=== PATIENT | male | born 1955 | race Caucasian/White ===

== ENCOUNTER 2022-04-17 18:06 | Inpatient (IN) | payer MEDICARE, SELFPAY ==
[2022-04-17] VITALS (9 sets, daily range): BP systolic 137–181; BP diastolic 95–132; PULSE 51–130; RESP 14–23; TEMP 36.7; O2SAT 92–97; BMI 27.2; BMI 27.1
--- NOTE | 2022-04-17 18:03 | ECG_ITS ---
APPROVED REPORT Exam: Resting ECG HR:134 bpm ECG Measurements Heart Rate 134 AXES QRSd 96 QRS 37 QT 279 T 95 QTc 358 Conclusion ATRIAL FIBRILLATION WITH RAPID VENTRICULAR RESPONSE WITH ABERRANT CONDUCTION OR VENTRICULAR PREMATURE COMPLEXES NONSPECIFIC ST & T-WAVE ABNORMALITY ABNORMAL RHYTHM ECG UNCONFIRMED REPORT Electronically signed by : Rufino Aldridge MD 04/18/2022 17:24:14
--- NOTE | 2022-04-17 18:27 | XR_ITS ---
PROCEDURE INFORMATION: Exam: XR Chest Exam date and time: 04/17/2022 6:37 PM Age: 66 years old Clinical indication: Shortness of breath; Additional info: [place] TECHNIQUE: Imaging protocol: XR of the chest. Views: 1 view. COMPARISON: No relevant prior studies available. FINDINGS: Lungs: Unremarkable. No consolidation. Pleural spaces: Unremarkable. No pleural effusion. No pneumothorax. Heart/Mediastinum: Unremarkable. No cardiomegaly. Bones/joints: Unremarkable. IMPRESSION: No acute findings.
[2022-04-17 18:39] LABS: Chloride 109 mmol/L (98-107); Potassium 4.1 mmoL/L (3.5-5.1); Sodium 138 mmol/L (136-145)
[2022-04-17 18:42] LABS: Anion Gap 16.1 mEq/L (5-15); Basophils # 0.2 K/mm3 (0-0.2); Blood Urea Nitrogen 18 mg/dl (9-20); Calcium 9.5 mg/dl (8.4-10.2); Carbon Dioxide 17 mmol/L (22.0-30.0); Creatinine Clearance Estimated 57 mL/min (50-200); Eosinophils # 0.2 K/mm3 (0.0-0.4); Eosinophils % 1.9 % (0.1-12.0); Estimated Glomerular Filt Rate 47 ml/min (>60); GFR (African American) 56 ML/MIN (>60); Glucose 144 mg/dl (74-100); Hematocrit 46.4 % (42.0-52.0); Hemoglobin 15.5 g/dL (14.1-18.0); Lymphocytes # 1.8 K/mm3 (0.7-4.5); Lymphocytes % 16.9 % (10-50); Mean Corpuscular HGB Conc 33.4 g/dL (31.8-35.4); Mean Corpuscular Hemoglobin 30.5 pg (27.0-31.2); Mean Corpuscular Volume 91.1 fl (80-94); Monocytes # 0.5 K/mm3 (0.1-1.0); Monocytes % 4.7 % (1.7-9.3); Neutrophils # 7.8 K/mm3 (1.8-7.8); Neutrophils % 74.5 % (37.0-80.0); Platelet Count 285 K/mm3 (142-424); Red Blood Count 5.09 M/mm3 (4.60-6.20); Red Cell Distribution Width 14.3 % (11.5-17.5); White Blood Count 10.4 K/mm3 (4.8-10.8)
[2022-04-17 18:54] LABS: Troponin I 0.08 ng/ml (0.00-0.034)
--- NOTE | 2022-04-17 20:13 | HMH.EDARPALP ---
ED Disposition Clinical Impression: Angina pectoris, unstable, Atrial fibrillation with rapid ventricular response, Hypothyroidism (acquired), Renal insufficiency CHF (congestive heart failure) Qualifiers: Heart failure type: unspecified Heart failure chronicity: acute Qualified Code(s): I50.9 - Heart failure, unspecified Disposition: Admitted As Inpatient Condition on Discharge: Serious - Critical Care Critical Care Time: No Attestation: On 04/17/22, the high probability of a clinically significant, sudden or life threatening deterioration of the following system(s) required my full and direct attention, intervention and personal management. The time I documented below is in addition to time spent performing reported procedures but includes the following listed in this critical care notation. Medical Decision Making - Medical Records Medical records reviewed: Yes: I reviewed the patient's medical records. - [place] Inquiry Pt receiving controlled substance: No Vital Signs: 04/17/22 18:08 04/17/22 18:53 04/17/22 19:31 Temperature 98.0 F Temperature Source Oral Pulse Rate 120 H 73 Pulse Rate [Right Radial] 130 H Respiratory Rate 18 16 23 Blood Pressure 162/115 H 149/100 H Blood Pressure [Right Arm] 181/132 H Blood Pressure Mean Blood Pressure Mean [Right Arm] 148 Blood Pressure Source [Right Arm] Automatic Cuff Blood Pressure Position [Right Arm] Sitting 02 Sat by Pulse Oximetry 96 96 95 Oxygen Delivery Method Room Air Room Air Room Air 04/17/22 20:00 04/17/22 20:39 04/17/22 21:00 Temperature Temperature Source Pulse Rate 55 L 51 L 66 Pulse Rate [Right Radial] Respiratory Rate 18 16 14 Blood Pressure 137/101 H 143/107 H 145/95 H Blood Pressure [Right Arm] Blood Pressure Mean Blood Pressure Mean [Right Arm] Blood Pressure Source [Right Arm] Blood Pressure Position [Right Arm] 02 Sat by Pulse Oximetry 96 92 L 94 L Oxygen Delivery Method Room Air Room Air Room Air 04/17/22 21:15 04/17/22 21:23 04/17/22 21:30 Temperature Temperature Source Pulse Rate 77 77 61 Pulse Rate [Right Radial] Respiratory Rate 19 15 16 Blood Pressure 159/132 H 151/99 H 145/95 H Blood Pressure [Right Arm] Blood Pressure Mean 141 119 111 Blood Pressure Mean [Right Arm] Blood Pressure Source [Right Arm] Blood Pressure Position [Right Arm] 02 Sat by Pulse Oximetry 95 97 95 Oxygen Delivery Method Room Air Room Air - Lab Data Lab results reviewed: Yes: I reviewed the patient's lab results. Lab Results 04/17/22 18:17: WBC 10.4, RBC 5.09, Hgb 15.5, Hct 46.4, MCV 91.1, MCH 30.5, MCHC 33.4, RDW 14.3, Plt Count 285, MPV 10.0, Neut % (Auto) 74.5, Lymph % (Auto) 16.9, [place] % (Auto) 4.7, Eos % (Auto) 1.9, Baso % (Auto) 2.0, Neut # (Auto) 7.8, Lymph # (Auto) 1.8, [place] # (Auto) 0.5, Eos # (Auto) 0.2, Baso # (Auto) 0.2 04/17/22 18:17: Sodium 138, Potassium 4.1, Chloride 109 H, Carbon Dioxide 17 L, Anion Gap 16.1 H, BUN 18, Creatinine 1.50 H, Estimated Creat Clear 57, Estimated GFR 47 L, Est GFR ( Amer) 56 L, Glucose 144 H, Calcium 9.5, Troponin I 0.08 H 04/17/22 18:17: NT-Pro-B Natriuret Pep 3750 H, TSH 18.20 H, Thyroxine (T4) 5.8 04/17/22 20:54: SARS-CoV-2 (PCR) Not detected, Influenza A Untype (PCR) Not detected, Influenza Type B (PCR) Not detected 04/17/22 21:21: Troponin I 0.09 H Result diagrams: 04/17/22 18:17 04/17/22 18:17 Orders (Tests/Meds): ED MEDICATIONS Generic Name Dose Route Start Last Admin Trade Name Freq PRN Reason Stop Dose Admin Diltiazem HCl 100 mg/ Sodium 100 mls @ 5 mls/hr 04/17/22 20:45 04/17/22 20:36 Chloride IV 05/17/22 20:44 5 mls/hr .Q20H JOYCE Administration Protocol Sodium Chloride 10 ml 04/17/22 18:28 Sodium Chloride 0.9% 10ml Flush Syringe IV 05/17/22 18:27 NEEDED PRN Maintain IV Site Discontinued Medications Generic Name Dose Route Start Last Admin Trade Name Freq PRN Reason Sto
--- NOTE | 2022-04-17 20:44 | PC.NURSE ---
Spoke with housekeeping worker at [facility] about pt records. She advised she was attempting to fax them now.
[2022-04-17 20:57] LABS: NT Pro Brain Natriuretic Pep. 3750 pg/mL (0-125)
[2022-04-17 21:01] LABS: Coronavirus 19, PCR Not Detected (NotDetected); Influenza A, PCR Not Detected (NotDetected); Influenza B, PCR Not Detected (NotDetected)
[2022-04-17 21:04] LABS: T4 (Thyroxine) 5.8 ug/dl (5.53-11.0)
--- NOTE | 2022-04-17 21:23 | PC.NURSE ---
Pt updated on POC. No complaints at this time.
[2022-04-17 22:00] LABS: Troponin I 0.09 ng/ml (0.00-0.034)
--- NOTE | 2022-04-17 22:46 | PC.NURSE ---
450 ml urinary output at this time.
--- NOTE | 2022-04-17 22:48 | ECG_ITS ---
APPROVED REPORT Exam: Resting ECG HR:76 bpm ECG Measurements Heart Rate 76 AXES QRSd 100 QRS 29 QT 372 T 91 QTc 403 Conclusion ATRIAL FIBRILLATION Late R wave progression ABNORMAL RHYTHM ECG UNCONFIRMED REPORT Electronically signed by : Rufino Aldridge MD 04/18/2022 17:23:07
[2022-04-18] VITALS (28 sets, daily range): BP systolic 123–178; BP diastolic 70–120; PULSE 58–120; RESP 12–33; TEMP 36.5–37.1; O2SAT 92–98; BMI 28.6
--- NOTE | 2022-04-18 | IR_ITS ---
APPROVED REPORT Patient Location: Inpatient Assistant Teacher Primary: JESICA Valle RT (R) PROCEDURES Left heart catheterization Left ventriculogram Selective coronary angiogram INDICATION Unstable angina Informed consent was obtained prior to the procedure. COMPLICATIONS None Estimated Blood Loss: Less than 10 mls TECHNIQUE One percent lidocaine used to anesthetize the right anterior aspect of the wrist. The right radial artery was accessed via the Seldinger technique. A 6 [place] sheath was placed in the right radial artery. 2.5 mg of verapamil, 800 mcg of nitroglycerin, 1mg Lidocaine and 5000 U Heparin were given through the arterial sheath. The papa catheter was also used to perform left heart catheterization, left ventriculogram and selective coronary angiogram. At the end of the procedure the sheath was removed good hemostasis was achieved using Traclet band, patient was transferred to the postop holding area in stable condition. ANGIOGRAPHIC RESULTS The left main artery Normal The left anterior descending artery Has proximal concentric 80% stenosis with mid vessel greater than 90% stenosis. KAPIL II flow was present down the LAD The circumflex artery There is a large dominant vessel has proximal 30% stenoses. The terminal obtuse marginal artery has proximal and mid vessel tandem 70% stenoses The right coronary artery Vestigial with severe proximal disease greater than 90% The TUCKER ventriculogram reveals Moderate to severely dilated with ejection fraction of 25 to 30% The left ventricular end-diastolic pressure 20 mmHg IMPRESSION Critical three-vessel coronary artery disease Severely reduced ejection fraction Mildly elevated LVEDP PLAN 1. Patient be referred to [facility] for urgent coronary artery bypass surgery 2. Standard therapy for systolic heart failure Electronically signed by : Clifton Gibson MD 04/18/2022 12:00:19
--- NOTE | 2022-04-18 00:37 | PC.NURSE ---
PT ARRIVED TO FLOOR VIA STRETCHER FROM ED W/STAFF @ 0073
[2022-04-18 01:01] LABS: Troponin I 0.09 ng/ml (0.00-0.034)
--- NOTE | 2022-04-18 02:59 | PC.NURSE ---
pt's HR in 50-60's, notified MD Moy, instructed to stop cardizem drip for HR less than 60
--- NOTE | 2022-04-18 05:43 | PC.NURSE ---
pt admitted earlier this morning to 216, pt NPO for heart cath today at 1100, pt's VSS but had to stop cardizem drip due to bradycardia although pt still in afib, pt voiding in urinal, pt rested well overnight, will continue to monitor
[2022-04-18 07:23] LABS: Basophils # 0.1 K/mm3 (0-0.2); Basophils % 1.5 % (0.1-2.0); Eosinophils # 0.3 K/mm3 (0.0-0.4); Eosinophils % 4.1 % (0.1-12.0); Hematocrit 43.6 % (42.0-52.0); Hemoglobin 14.3 g/dL (14.1-18.0); Lymphocytes # 1.8 K/mm3 (0.7-4.5); Lymphocytes % 21.5 % (10-50); Mean Corpuscular HGB Conc 32.7 g/dL (31.8-35.4); Mean Corpuscular Hemoglobin 30.2 pg (27.0-31.2); Mean Corpuscular Volume 92.4 fl (80-94); Mean Platelet Volume 10.2 fl (7.4-10.4); Monocytes # 0.5 K/mm3 (0.1-1.0); Monocytes % 5.6 % (1.7-9.3); Neutrophils # 5.7 K/mm3 (1.8-7.8); Neutrophils % 67.4 % (37.0-80.0); Platelet Count 229 K/mm3 (142-424); Red Blood Count 4.72 M/mm3 (4.60-6.20); Red Cell Distribution Width 14.5 % (11.5-17.5); White Blood Count 8.4 K/mm3 (4.8-10.8)
[2022-04-18 07:30] LABS: Chloride 108 mmol/L (98-107); Potassium 3.3 mmoL/L (3.5-5.1); Sodium 139 mmol/L (136-145)
[2022-04-18 07:32] LABS: Blood Urea Nitrogen 21 mg/dl (9-20); Creatinine Clearance Estimated 66 mL/min (50-200); Estimated Glomerular Filt Rate 55 ml/min (>60); GFR (African American) 66 ML/MIN (>60)
[2022-04-18 07:33] LABS: Anion Gap 13.3 mEq/L (5-15); Calcium 8.9 mg/dl (8.4-10.2); Carbon Dioxide 21 mmol/L (22.0-30.0); Chol/HDL Ratio 6.6 (1-3.5); Cholesterol 165 mg/dl (140-200); Glucose 113 mg/dl (74-100); HDL Cholesterol 25 mg/dl (40-60); Triglycerides 100 mg/dl (30-150); VLDL Cholesterol 20 mg/dL (0-40)
[2022-04-18 07:44] LABS: Direct LDL Cholesterol 121.33 mg/dL (100-129)
--- NOTE | 2022-04-18 09:24 | HMH.HP ---
*Admission Date: 04/17/22 *Chief complaint: sob *History of present illness: this patient presented to ed with sob which has been progressive over the last week - some element of ant chest discomfort - [facility] and noted to have a fib and was admitted overnight -pt was released and again had above sx and presented to [facility] ed with progressive sob over the last 2 weeks with chest pain which feels like pt winded and was [facility] and admitted overnight and d/c today - pt with a fib and d/c today - hx of cad - last mi 8 yrs ago - pt was admitted for card eval and treatment for a fib/chf and unstable angina [facility] History I have reviewed the patient's past medical history: Yes Medical History: Reports:: Coronary Artery Disease, Myocardial Infarction Denies:: Internal Pacemaker *Have you ever received a pneumonia vaccine?: No *Have you received a flu vaccine this season?: Yes Other Surgeries: Yes: Cardiac Catheterization, Coronary Stent. No: Pacemaker - *Social History Smoking Status: Former smoker Alcohol Intake: current Alcohol Intake Frequency:: holidays/special occasions only *Occupational Status:: retired *Travel in the last 8 weeks: None Family Hx:: Coronary Artery Disease Review of Systems - Review of Systems Review of systems:: pertinent systems reviewed and negative unless documented below - Constitutional Denies fever(s) - Eyes Denies change in vision - ENT Denies sore throat - *Cardiovascular Reports chest pain at rest, Reports shortness of breath, Reports rapid, pounding, or irregular heartbeat, Reports fast heart rate - *Respiratory Denies cough - *Gastrointestinal Denies abdominal pain - *Genitourinary Denies blood in urine - *Musculoskeletal Denies joint pain - Integumentary/Breasts Denies rash - *Neurologic Denies headache(s), Denies seizure-like activity - Psychiatric Denies anxiety Meds Home Medications Medication Instructions Recorded Confirmed Type Apixaban [Eliquis 5mg Tablet] 5 mg PO BID 04/17/22 04/17/22 History Aspirin [Aspirin 81mg chewable 81 mg PO DAILY 04/17/22 04/17/22 History tab] Metoprolol Succinate [Metoprolol 25 mg PO DAILY 04/17/22 04/17/22 History Succinate 25mg Tablet*] dilTIAZem HCL [Diltiazem 24Hr ER] 120 mg PO DAILY 04/17/22 04/17/22 History Allergies Allergy/AdvReac Type Severity Reaction Status Date / Time No Known Allergies Allergy Verified 04/17/22 18:27 Exam Vital signs and Labs for Last 24 Hours: Temp Pulse Resp BP Pulse Ox 98.7 F 70 19 153/83 H 96 04/18/22 08:00 04/18/22 08:00 04/18/22 06:00 04/18/22 06:00 04/18/22 06:00 Laboratory Results - last 24 hr 04/17/22 18:17: WBC 10.4, RBC 5.09, Hgb 15.5, Hct 46.4, MCV 91.1, MCH 30.5, MCHC 33.4, RDW 14.3, Plt Count 285, MPV 10.0, Neut % (Auto) 74.5, Lymph % (Auto) 16.9, [place] % (Auto) 4.7, Eos % (Auto) 1.9, Baso % (Auto) 2.0, Neut # (Auto) 7.8, Lymph # (Auto) 1.8, [place] # (Auto) 0.5, Eos # (Auto) 0.2, Baso # (Auto) 0.2 04/17/22 18:17: Sodium 138, Potassium 4.1, Chloride 109 H, Carbon Dioxide 17 L, Anion Gap 16.1 H, BUN 18, Creatinine 1.50 H, Estimated Creat Clear 57, Estimated GFR 47 L, Est GFR ( Amer) 56 L, Glucose 144 H, Calcium 9.5, Troponin I 0.08 H 04/17/22 18:17: NT-Pro-B Natriuret Pep 3750 H, TSH 18.20 H, Thyroxine (T4) 5.8 04/17/22 20:54: SARS-CoV-2 (PCR) Not detected, Influenza A Untype (PCR) Not detected, Influenza Type B (PCR) Not detected 04/17/22 21:21: Troponin I 0.09 H 04/18/22 00:18: Troponin I 0.09 H 04/18/22 06:58: WBC 8.4, RBC 4.72, Hgb 14.3, Hct 43.6, MCV 92.4, MCH 30.2, MCHC 32.7, RDW 14.5, Plt Count 229, MPV 10.2, Neut % (Auto) 67.4, Lymph % (Auto) 21.5, [place] % (Auto) 5.6, Eos % (Auto) 4.1, Baso % (Auto) 1.5, Neut # (Auto) 5.7, Lymph # (Auto) 1.8, [place] # (Auto) 0.5, Eos # (Auto) 0.3, Baso # (Auto) 0.1 04/18/22 06:58: Sodium 139, Potassium 3.3 L, Chloride 108 H, Carbon Dioxide 21 L, Anion Gap 13.3, BUN 21 H, Creatinine 1.30 H, Est
--- NOTE | 2022-04-18 13:25 | HMH.PHAINT ---
MEDICATION RECONCILIATION COMPLETE VIA CALL TO [facility] IN [place].
--- NOTE | 2022-04-18 13:26 | P.CONPHA_ITS ---
[facility] VTE Monitoring - Patient Demographics Admission date: 04/18/22 Report Date: 04/18/22 Time: 13:26 Allergies/Adverse Reactions: Patient Allergies No Known Allergies Allergy (Verified 04/17/22 18:27) Height: 1.73 m Weight: 85.417 kg Patient Problems: Current Active Problems Angina pectoris, unstable (Acute) Atrial fibrillation with rapid ventricular response (Acute) CHF (congestive heart failure) (Acute) Hypothyroidism (acquired) (Acute) Renal insufficiency (Acute) - VTE Risk Labs: VTE Related Lab Results Hgb 14.3 g/dL (14.1-18.0) 04/18/22 06:58 Hct 43.6 % (42.0-52.0) 04/18/22 06:58 Plt Count 229 K/mm3 (142-424) 04/18/22 06:58 BUN 21 mg/dl (9-20) H 04/18/22 06:58 Creatinine 1.30 mg/dl (0.66-1.25) H 04/18/22 06:58 Estimated Creat Clear 66 mL/min (50-200) 04/18/22 06:58 Was VTE Risk Assessment Performed: No Clinical Trial Participant: No - Prophylaxis VTE Prophylaxis Ordered?: Yes Types of VTE Prophylaxis: TEDS Knee High Location of Applied Device: Bilateral Lower Extremeties
--- NOTE | 2022-04-18 16:55 | PC.NURSE ---
received call from [facility] @ who reports that pt is on their list and that they're working on getting him a bed for a CABG procedure.
--- NOTE | 2022-04-18 18:49 | PC.NURSE ---
bed assignment: [address], 8th floor, room 128. Report will be called after shift change (per [facility] request) to [phone]. Dr. Moy and Dr. Gibson are aware. Pt to transport via ambulance.
--- NOTE | 2022-04-18 19:30 | HMH.DCSUM ---
General - General Admission date:: 04/18/22 Discharge date: 04/18/22 HPI HPI: this patient presented to ed with sob which has been progressive over the last week - some element of ant chest discomfort - pt went to [facility] ed and noted to have a fib and was admitted overnight -pt was released and again had above sx and presented to [facility] ed with progressive sob over the last 2 weeks with chest pain which feels like pt winded and was seen at [facility] and admitted overnight and d/c today - pt with a fib and d/c today - hx of cad - last mi 8 yrs ago - pt was admitted for card eval and treatment for a fib/chf and unstable angina Hospital Course Hospital Course: pt was admitted to [facility] on tele on cardizam drip with good response with dec hr and has sig diuresis with lasix and had stable labs - pt was taken to [facility] processing lab[facility] One percent lidocaine used to anesthetize the right anterior aspect of the wrist. The right radial artery was accessed via the Seldinger technique. A 6 [place] sheath was placed in the right radial artery. 2.5 mg of verapamil, 800 mcg of nitroglycerin, 1mg Lidocaine and 5000 U Heparin were given through the arterial sheath. The papa catheter was also used to perform left heart catheterization, left ventriculogram and selective coronary angiogram. At the end of the procedure the sheath was removed good hemostasis was achieved using Traclet band, patient was transferred to the postop holding area in stable condition. ANGIOGRAPHIC RESULTS The left main artery Normal The left anterior descending artery Has proximal concentric 80% stenosis with mid vessel greater than 90% stenosis. KAPIL II flow was present down the LAD The circumflex artery There is a large dominant vessel has proximal 30% stenoses. The terminal obtuse marginal artery has proximal and mid vessel tandem 70% stenoses The right coronary artery Vestigial with severe proximal disease greater than 90% The TUCKER ventriculogram reveals Moderate to severely dilated with ejection fraction of 25 to 30% The left ventricular end-diastolic pressure 20 mmHg IMPRESSION Critical three-vessel coronary artery disease Severely reduced ejection fraction Mildly elevated LVEDP PLAN 1. Patient be referred to [facility] for urgent coronary artery bypass surgery 2. Standard therapy for systolic heart failure pt remained stable and transferred to for cabg surg - Objective Vital signs: Temp Pulse Resp BP Pulse Ox 98.1 F 107 H 16 156/78 H 95 04/18/22 18:20 04/18/22 18:20 04/18/22 18:20 04/18/22 18:20 04/18/22 18:20 no acute distress - *Routine HEENT Exam Head: Present: normocephalic Eye: Present: EOMI, PERRL ENT: Present: mucous membranes moist - *Routine Neck Exam Absent: JVD - *Routine Respiratory Exam Present: CTA bilaterally - *Routine Cardiovascular Exam Present: RRR, murmur - *Routine Abdominal Exam Present: soft - *Routine Extremities Exam Absent: calf tenderness - *Routine Skin Exam Present: intact - *Routine Neurological Exam Present: alert, CN II-XII intact - Routine Psychiatric Exam Present: normal affect Results Labs on day of discharge: Labs from last 24 hours 04/18/22 04/18/22 04/18/22 06:58 06:58 00:18 WBC 8.4 RBC 4.72 Hgb 14.3 Hct 43.6 MCV 92.4 MCH 30.2 MCHC 32.7 RDW 14.5 Plt Count 229 MPV 10.2 Neut % (Auto) 67.4 Lymph % (Auto) 21.5 [place] % (Auto) 5.6 Eos % (Auto) 4.1 Baso % (Auto) 1.5 Neut # (Auto) 5.7 Lymph # (Auto) 1.8 [place] # (Auto) 0.5 Eos # (Auto) 0.3 Baso # (Auto) 0.1 Sodium 139 Potassium 3.3 L Chloride 108 H Carbon Dioxide 21 L Anion Gap 13.3 BUN 21 H Creatinine 1.30 H Estimated Creat Clear 66 Estimated GFR 55 L Est GFR ( Amer) 66 Glucose 113 H D Calcium 8.9 Magnesium 2.0 Troponin I 0.09 H NT-Pro-B Natriuret Pep
--- NOTE | 2022-04-18 20:49 | PC.NURSE ---
called report to Millie [phone] at [facility], pt to be transported via ambulance for CABG
--- NOTE | 2022-04-18 21:28 | PC.NURSE ---
pt being transported via ems personnel to [facility], all paperwork secured and given to appropriate personnel
--- NOTE | 2022-04-18 21:28 | PC.NURSE ---
PT WAS TRANSFERRED VIA STRETCHER PER [id number]
== END 2022-04-18 21:28 | disposition short-term general hospital (02) | DRG 286 ==
LOC: ER 22:49 → 2ND 23:52
PROVIDERS: Emergency Medicine; Internal Medicine; Admitting Provider Emergency Medicine; Emergency Provider Emergency Medicine; Visit Provider Emergency Medicine
PROC: 4A023N7 Measurement of Cardiac Sampling and Pressure, Left Heart, Percutaneous Approach (ICD-10-PCS; principal; 2022-04-18 11:45)
DX: I25.110 Atherosclerotic heart disease of native coronary artery with unstable angina pectoris (principal); I50.21 Acute systolic (congestive) heart failure; I25.2 Old myocardial infarction; Z87.891 Personal history of nicotine dependence; Z95.5 Presence of coronary angioplasty implant and graft; E03.9 Hypothyroidism, unspecified; N28.9 Disorder of kidney and ureter, unspecified
CPT/HCPCS: 36415; 71045; 80048; 80061; 83735; 83880; 84436; 84443; 84484; 85025; 93005; 93458; 99152; 99285; C1725; C1769; C9803; G0378; J1644; Q9967; U0003; U0005